=== PATIENT | female | born 1930 | race Caucasian/White ===

== ENCOUNTER 2016-10-31 08:25 | Day surgery (SDC) ==
[2016-10-31] MEDS ORDERED: NS 250 ML ONE (08:57)
[2016-10-31 09:30] LABS: HEMATOCRIT 25.5 % (37.0-47.0); HEMOGLOBIN 7.7 g/dL (12.0-16.0); MCH 29.8 PG (27-31); MCHC 30.2 g/dL (33-37); MCV 98.8 FL (81-99); MPV 9.2 FL (7.4-10.4); RBC 2.58 XMIL (4.2-5.4)
[2016-10-31] MEDS ORDERED: TYLENOL ONE (10:48)
[2016-10-31] MEDS ORDERED: BENADRYL ONE (10:48)
[2016-10-31 14:15] VITALS: BP 153/61
== END 2016-10-31 13:05 | disposition home or self-care (01) ==
LOC: INF 08:25
PROVIDERS: ATTEND Internal Medicine
DX: N18.9 Chronic kidney disease, unspecified (principal); D63.1 Anemia in chronic kidney disease; E61.1 Iron deficiency; Z79.899 Other long term (current) drug therapy; Z79.82 Long term (current) use of aspirin
CPT/HCPCS: 36430; 85027; 86850; 86900; 86901; 86920; J7050; P9016